=== PATIENT | male | born 1975 | race Caucasian/White ===

== ENCOUNTER → 2022-02-21 | Outpatient (CLI) | payer BC ==
--- NOTE | 2022-02-21 14:02 | CA ---
Exercise Stress Test Report Name: Luis Solis Exam Date: 02/21/2022 09:22 Exam Location: [place] Stress Ht (in): 70 Wt (lb): 250 BSA: 2.29 Ordering Phys: Hola Guajardo DO Referring Phys: JULIET, Technologist: Miguel Ramesh Age: 46 Gender: M : 1975 Procedure CPT: Indications: R07.9 CHEST PAIN ICD-10 Codes: Patient History: CHEST PAIN Medications: SYNTHROID, CLOBETASOL PROPIONATE Meds past 24 hrs: Pretest Chest Pain: STRESS TEST Isaias Protocol Exercise Duration (min:sec): 10:[address] Depressions (mm): Angina Score: De [place] Cruz Score: Resting HR (bpm): 84 Peak HR (bpm): 173 Resting BP (mmHg): 121 / 83 Peak BP (mmHg): 216 / 79 MPHR: 172 Target HR: 146 % MPHR: 101 METS: 12.1 Total Dose: Peak Dose: Atropine: Double Product: 49632 BP Response: Stress Termination: Reached target heart rate Stress Symptoms: DIFFICULTY IN BREATHING Stress Summary: ECG ANALYSIS Resting ECG: Stress ECG: CONCLUSIONS Excellent exercise tolerance Normal EKG response to exercise Dr. Jonathan Burgess MD (Electronically Signed) Final Date: 21 Feb 2022 14:01
== END | disposition home or self-care (01) ==
LOC: RADNMMAIN 08:46
PROVIDERS: ATTEND Family Medicine
DX: R07.9 Chest pain, unspecified (principal)
CPT/HCPCS: 93017

== ENCOUNTER → 2025-03-22 | Outpatient (CLI) | payer BC ==
--- NOTE | 2025-03-24 19:29 | P.PCN ---
Description of Procedure: CLINICAL: A home sleep apnea test has been done for confirmation of possible obstructive sleep apnea-hypopnea syndrome. DESCRIPTION OF PROCEDURE: RESULTS: Recording time was 8 hours 57 minutes. Evaluation time was 8 hours 48 minutes. Evaluation time is sufficient for making conclusion about results of the test. Raw data of sleep recording has been reviewed and is adequate. Respiratory channel showed 57 apneas and 133 hypopneas. Apnea-hypopnea index was 21.7 per hour. Pulse rate in the range between minimum 55, maximum 103, average 71 by computer calculation. Lowest desaturation was 79%. IMPRESSION: 1. Moderate Obstructive Sleep Apnea Hypopnea Syndrome. Please see other impressions from consultation. PLAN: 1. The patient will be started on auto-PAP treatment for correction of respiratory abnormallities during sleep. 2. I will see patient for follow up visit to discuss results of the test, evaluate clinical response on treatment with PAP therapy and make any necessary adjustments related to mask fitting, pressure, and humidification. 3. Watching and losing weight. 4. Sleep hygiene with regular time in bed for at least 8 hours. 5. No driving if feeling any sleepiness. Thank you very much for allowing me to participate in the management of your patient. Sincerely, Daron Ocasio MD, PhD, FAASM Diplomat of [employer] Sleep Medicine Board of [employer] End Worker of [facility] [place] cc: Hola Guajardo DO
== END ==
LOC: 3 N SLEEP 10:52
PROVIDERS: ATTEND Internal Medicine
DX: G47.33 Obstructive sleep apnea (adult) (pediatric) (principal)